=== PATIENT | male | born 1995 | race Asian ===

== ENCOUNTER 2016-06-25 02:24 | Emergency (ER) | payer OTHER ==
[~2016-06-25] VITALS: Ht 182.9 cm; Wt 64.0 kg
[2016-06-25 02:31] VITALS: TEMP 36.4; Ht 182.9 cm; Wt 64.0 kg
--- NOTE | 2016-06-25 03:01 | EMERGENCY ROOM VISIT NOTE ---
ED Visit Note First contact with patient: 02:37 CHIEF COMPLAINT: Tick bite HISTORY OF PRESENT ILLNESS: This 20-year-old male patient presents to the emergency department ambulatory complaining of a tick bite to the to the left axilla. The patient believes that the tick has been in place for a few hours. He has attempted to remove the tick at home, but was not successful. They complain of 3/10 pain in the area of the tick bite. The patient denies any redness, swelling or drainage from the area. They deny any rashes, fevers or joint pain. REVIEW OF SYSTEMS: A review of systems was performed with positives and pertinent negatives listed in the history of present illness. All other systems were reviewed and are negative. ALLERGIES: No known drug allergies MEDICATIONS: No chronic medications PMH: No significant past medical history. SOCIAL HISTORY: The patient is a [employer] student and lives with roommates. PHYSICAL EXAM: VITALS: Vitals are noted on the nurse's note and reviewed by myself. Vital signs stable. GENERAL: This is a 20-year-old male, in no acute distress, nondiaphoretic, well- developed well-nourished. SKIN: There is a tick embedded in the left axilla. There is no surrounding erythema or swelling. There are no rashes. EMERGENCY DEPARTMENT COURSE: The patient was seen and examined as above. Using a tick twister, the tick was easily removed. Lyme prophylaxis was not indicated. Conservative care measures were discussed with the patient. The patient was discharged home in good condition. DIAGNOSIS: Tick bite Vital Signs Date Time Temp Pulse Resp B/P Pulse Ox O2 Delivery O2 Flow Rate FiO2 06/25/16 02:31 36.4 81 18 111/79 96 Room Air Departure Information Impression Primary Impression: Tick bite Dispostion Home / Self-Care Condition GOOD Referrals No Doctor, Assigned (PCP) Patient Instructions [facility] Additional Instructions Use the tick twister to remove any ticks in the future. For pain control, you can use the following [id number] medicines (if >12 yo): - Regular strength (325mg/tab) Tylenol (acetaminophen) 2 tabs every 4-6 hours as needed. Do not exceed 12 tablets in a 24 hour period. Avoid taking more than 4 grams (4000 mg) of Tylenol per day. This includes any other sources of acetaminophen you may take on a regular basis. - Regular strength (200 mg/tab) Advil (ibuprofen) 1-2 tabs every 4-6 hours as needed. Do not exceed a dose of 3200 mg per day. Proper wound care is essential for adequate wound healing and infection prevention. You can shower and clean the wound with soap and water. Do not scour over the wound, pat dry with a towel. Do not submerse the wound (i.e. bathe or dish wash) until the wound has fully healed. You can use an antibiotic ointment with a dressing over the wound for the next 3-4 days. After this time you may leave the wound dry and open to the air. Return or go to [facility] if you develop any target rashes, fevers or joint aches. Problem Qualifiers Primary Impression: Tick bite Encounter type: initial encounter Qualified Codes: W57.XXXA - Bitten or stung by nonvenomous insect and other nonvenomous arthropods, initial encounter
[2016-06-25 03:03] VITALS: BP 115/75; PULSE 75; O2SAT 97
== END 2016-06-25 03:03 | disposition home or self-care (01) ==
LOC: C.EDB 02:25
DX: S40.862A Insect bite (nonvenomous) of left upper arm, initial encounter (principal); W57.XXXA Bitten or stung by nonvenomous insect and other nonvenomous arthropods, initial encounter